=== PATIENT | male | born 1970 | race Two or more races ===

== ENCOUNTER 2022-07-23 14:34 | Inpatient (IN) | payer MEDICAID ==
[~2022-07-23] VITALS: Ht 172.7 cm; Wt 80.0 kg
[2022-07-23] MEDS ORDERED: ACETAMINOPHEN 325 MG TAB PO ONE (15:15)
[2022-07-23] MEDS ORDERED: NALOXONE HCL 0.4 MG/ML VIAL IV ONE (15:15)
[2022-07-23] MEDS ORDERED: SODIUM CHLORIDE 0.9% 500 ML IV ONE ×2 (15:30→16:15)
[2022-07-23 16:02] LABS: Basophils # (auto) 0 10 ^3/uL (0-0.2); Eosinophils # (auto) 0 10 ^3/uL (0-0.8); Eosinophils % (auto) 0.1 % (0.0-7.0); Monocytes # (auto) 0.6 10 ^3/uL (0-1.3); Nucleated Red Blood Cells % 0.1 %
[2022-07-23 16:04] LABS: Basophils % (auto) 0.3 % (0.0-2.0); Hematocrit 20.2 % (41.0-53.0); Lymphocytes # (auto) 2.3 10 ^3/uL (0.4-5.4); Lymphocytes % (auto) 32.4 % (10.0-50.0); Mean Corpuscular Hemoglobin 25.8 pg (28.0-32.0); Mean Corpuscular Hgb Conc. 31.8 g/dL (32.0-36.0); Monocytes % (auto) 8.7 % (0.0-12.0); Neutrophils # (auto) 4.1 10 ^3/uL (1.6-8.6); Neutrophils % (auto) 58.5 % (37.0-80.0); Red Blood Cells 2.49 10^6/uL (4.5-5.90); Red Cell Distribution Width 19.3 % (11.8-14.3)
[2022-07-23 16:15] LABS: Alanine Aminotransferase 8 U/L (16-61); Albumin 1.4 g/dL (3.4-5.0); Anion Gap 6 (5-15); Aspartate Aminotransferase 11 U/L (15-37); BUN/Creatinine Ratio 13.5; Blood Alcohol < 3.0 mg/dL (0-5); Blood Urea Nitrogen 39 mg/dL (7-18); Calcium 8.1 mg/dL (8.5-10.1); Carbon Dioxide 25 mmol/L (21-32); Chloride 115 mmol/L (98-107); GFR African American 30 mL/min; GFR Non-African American 24 mL/min; Glucose 185 mg/dL (74-106); Potassium 5.1 mmol/L (3.5-5.1); Sodium 146 mmol/L (136-145)
[2022-07-23 16:17] LABS: Alkaline Phosphatase 59 U/L (45-117); Bilirubin, Total 0.3 mg/dL (0.2-1.0); Total Protein 5.6 g/dL (6.4-8.2)
[2022-07-23 16:30] LABS: Alcohol, Urine < 3.0 mg/dL (0-10); Amphetamine Screen, Urine NEGATIVE (NEGATIVE); Barbiturate Scree,Urine NEGATIVE (NEGATIVE); Benzodiazephine Screen, Urine NEGATIVE (NEGATIVE); Cannabinoid Screen, Urine NEGATIVE (NEGATIVE); Cocaine Screen, Urine NEGATIVE (NEGATIVE); Opiate Scree,Urine NEGATIVE (NEGATIVE); Phencyclidine Screen, Urine NEGATIVE (NEGATIVE)
[2022-07-23 16:31] LABS: Hemoglobin 6.4 g/dL (13.5-17.5)
[2022-07-23] MEDS ORDERED: ACETAMINOPHEN 650 MG RECT SUPP PR ONE (16:45)
[2022-07-23 16:52] LABS: Urine Blood 1+ /uL (Negative)
[2022-07-23 16:59] LABS: Urine Bacteria None Seen /hpf (None Seen)
[2022-07-23] MEDS ORDERED: levoFLOXacin 500MG 100 ML IV ONE (17:45)
[2022-07-23 18:08] LABS: Urine WBC Clumps None Seen /hpf (None Seen)
[2022-07-23 18:10] LABS: Urine Ca Carbonate Crystal None Seen /hpf (None Seen); Urine WBC 0-3 /hpf (0 - 3)
[2022-07-23 18:11] LABS: Urine Amorphous Sediment None Seen /hpf; Urine Fine Granular Cast None Seen /lpf; Urine Hyaline Cast None Seen /lpf (0 - 2)
[2022-07-23 18:12] LABS: Urine Amorphous Crystal None Seen /hpf (None Seen); Urine Budding Yeast Moderate /hpf (None Seen); Urine Mucus None Seen (None Seen); Urine Sperm None Seen /hpf (None Seen)
[2022-07-23 20:50] VITALS: BP 87/46
[2022-07-23 21:05] VITALS: BP 94/44
[2022-07-23 21:20] VITALS: BP 90/45
[2022-07-23 21:35] VITALS: BP 89/45
[2022-07-23 21:50] VITALS: BP 97/47
[2022-07-23] MEDS ORDERED: DEXTROSE (50%) 50ML SYRG IV PRN (22:15)
[2022-07-23] MEDS ORDERED: DOCUSATE SOD 100 MG CAP PO PRN (22:15)
[2022-07-23] MEDS ORDERED: ACETAMINOPHEN 325 MG TAB PO PRN (22:15)
[2022-07-23] MEDS ORDERED: ONDANSETRON HCL 4 MG/2 ML VIAL IV PRN (22:15)
[2022-07-23] MEDS ORDERED: HYDROcodone-ACET 5/325MG TAB PO PRN (22:15)
[2022-07-23] MEDS: ALBUMIN 25% 100 ML IV SCH (22:51)
[2022-07-23] MEDS ORDERED: NITROGLYCERIN 0.4 MG SL TAB SL PRN (23:45)
[2022-07-23] MEDS ORDERED: MORPHINE SULFATE INJ 2 MG/ml SYRG IV PRN (23:45)
[2022-07-24] VITALS (9 sets, daily range): BP systolic 99–154; BP diastolic 47–71
[2022-07-24 05:25] LABS: Basophils # (auto) 0 10 ^3/uL (0-0.2); Eosinophils # (auto) 0 10 ^3/uL (0-0.8); Eosinophils % (auto) 0.1 % (0.0-7.0); Neutrophils # (auto) 4.9 10 ^3/uL (1.6-8.6); Red Cell Distribution Width 18.4 % (11.8-14.3)
[2022-07-24 05:28] LABS: Basophils % (auto) 0.2 % (0.0-2.0); Hematocrit 22.6 % (41.0-53.0); Hemoglobin 7.3 g/dL (13.5-17.5); Lymphocytes # (auto) 2.3 10 ^3/uL (0.4-5.4); Lymphocytes % (auto) 28.7 % (10.0-50.0); Mean Corpuscular Hgb Conc. 32.5 g/dL (32.0-36.0); Mean Corpuscular Volume 83.3 fL (80.0-100.0); Monocytes # (auto) 0.8 10 ^3/uL (0-1.3); Monocytes % (auto) 9.5 % (0.0-12.0); Neutrophils % (auto) 61.5 % (37.0-80.0); Red Blood Cells 2.71 10^6/uL (4.5-5.90)
[2022-07-24 05:47] LABS: Albumin 1.6 g/dL (3.4-5.0); Calcium 7.6 mg/dL (8.5-10.1); Potassium 4.4 mmol/L (3.5-5.1)
[2022-07-24 05:52] LABS: BUN/Creatinine Ratio 16.4; Bilirubin, Total 0.5 mg/dL (0.2-1.0); Total Protein 4.8 g/dL (6.4-8.2)
[2022-07-24] MEDS: ACCU-CHEK COMFORT CURVE STRIP VI SCH ×4 (06:19→22:13)
[2022-07-24] MEDS: InsuLIN REG 1unit/0.01ml Soln (100units/ml) SC SCH ×4 (06:20→22:00)
[2022-07-24] MEDS: ALBUMIN 25% 100 ML IV SCH ×2 (06:30→16:16)
[2022-07-24] MEDS: SODIUM CHLOR 0.9% PF (SALINE LOCK) 10ML VIAL/SYR IV SCH ×3 (06:31→22:12)
[2022-07-25 05:00] VITALS: BP 125/62
[2022-07-25] MEDS: ACCU-CHEK COMFORT CURVE STRIP VI SCH ×4 (06:24→22:00)
[2022-07-25] MEDS: InsuLIN REG 1unit/0.01ml Soln (100units/ml) SC SCH ×4 (06:24→22:00)
[2022-07-25] MEDS: GABAPENTIN 300 MG CAP PO SCH ×3 (06:25→23:08)
[2022-07-25] MEDS: SODIUM CHLOR 0.9% PF (SALINE LOCK) 10ML VIAL/SYR IV SCH ×3 (06:25→22:00)
[2022-07-25] MEDS: PIPERACILLIN-TAZOB 3.375GM 100 ML IV SCH ×2 (06:25→14:53)
[2022-07-25 09:00] VITALS: BP 135/67
[2022-07-25] MEDS: ASPirin 81 mg TAB PO SCH (09:25)
[2022-07-25] MEDS: CARVEDILOL 12.5 MG TAB PO SCH ×2 (09:27→22:00)
[2022-07-25 13:00] VITALS: BP 121/59
[2022-07-25 17:00] VITALS: BP 145/64
[2022-07-25 20:00] VITALS: BP 97/45
[2022-07-25 22:00] VITALS: BP 97/45
[2022-07-25] MEDS: MEROPENEM 1GM IVPB 100 ML IV SCH (23:04)
[2022-07-25] MEDS: ATORVASTATIN 20 MG TAB PO SCH (23:08)
[2022-07-26 05:00] VITALS: BP 113/59
[2022-07-26 05:38] LABS: Basophils # (auto) 0 10 ^3/uL (0-0.2); Eosinophils # (auto) 0 10 ^3/uL (0-0.8); Hemoglobin 8.6 g/dL (13.5-17.5); Lymphocytes # (auto) 1.7 10 ^3/uL (0.4-5.4); Neutrophils % (auto) 52.6 % (37.0-80.0); Nucleated Red Blood Cells % 0.2 %; Red Blood Cells 3.21 10^6/uL (4.5-5.90)
[2022-07-26 05:44] LABS: Basophils % (auto) 0.5 % (0.0-2.0); Eosinophils % (auto) 0.6 % (0.0-7.0); Hematocrit 26.8 % (41.0-53.0); Lymphocytes % (auto) 38.5 % (10.0-50.0); Mean Corpuscular Hemoglobin 26.7 pg (28.0-32.0); Mean Corpuscular Hgb Conc. 31.9 g/dL (32.0-36.0); Mean Corpuscular Volume 83.6 fL (80.0-100.0); Monocytes # (auto) 0.3 10 ^3/uL (0-1.3); Monocytes % (auto) 7.8 % (0.0-12.0); Neutrophils # (auto) 2.4 10 ^3/uL (1.6-8.6); Red Cell Distribution Width 19.1 % (11.8-14.3); White Blood Cell 4.5 10^3/uL (4.4-10.8)
[2022-07-26] MEDS: SODIUM CHLOR 0.9% PF (SALINE LOCK) 10ML VIAL/SYR IV SCH ×3 (06:00→22:35)
[2022-07-26 06:07] LABS: BUN/Creatinine Ratio 15.3; Calcium 8.2 mg/dL (8.5-10.1); Potassium 4.7 mmol/L (3.5-5.1)
[2022-07-26] MEDS: GABAPENTIN 300 MG CAP PO SCH ×3 (06:42→22:43)
[2022-07-26] MEDS: ACCU-CHEK COMFORT CURVE STRIP VI SCH ×4 (06:42→22:36)
[2022-07-26] MEDS: InsuLIN REG 1unit/0.01ml Soln (100units/ml) SC SCH ×4 (06:42→22:38)
[2022-07-26 08:27] VITALS: BP 143/75
[2022-07-26] MEDS: ZINC SULFATE 220mg CAP or TAB PO SCH (09:31)
[2022-07-26] MEDS: CHOLECALCIFEROL (VITD3) 1,000UNIT=25mCg TAB PO SCH (09:31)
[2022-07-26] MEDS: ASPirin 81 mg TAB PO SCH (09:31)
[2022-07-26] MEDS: ASCORBIC ACID 500 MG TAB PO SCH (09:31)
[2022-07-26] MEDS: CARVEDILOL 12.5 MG TAB PO SCH ×2 (09:32→22:43)
[2022-07-26] MEDS: MEROPENEM 1GM IVPB 100 ML IV SCH ×2 (11:33→22:41)
[2022-07-26 12:52] VITALS: BP 136/71
[2022-07-26] MEDS: DexAMETHasone SOD PHOS 10MG/1ML VIAL INJ IV SCH (14:41)
[2022-07-26 16:56] VITALS: BP 141/70
[2022-07-26 22:00] VITALS: BP 144/67
[2022-07-26] MEDS: ATORVASTATIN 20 MG TAB PO SCH (22:43)
[2022-07-27 05:00] VITALS: BP 123/60
[2022-07-27 05:29] LABS: Basophils # (auto) 0 10 ^3/uL (0-0.2); Basophils % (auto) 0.3 % (0.0-2.0); Eosinophils # (auto) 0 10 ^3/uL (0-0.8); Eosinophils % (auto) 0.1 % (0.0-7.0); Hematocrit 33.3 % (41.0-53.0); Hemoglobin 10.7 g/dL (13.5-17.5); Lymphocytes # (auto) 0.9 10 ^3/uL (0.4-5.4); Mean Corpuscular Hemoglobin 27.2 pg (28.0-32.0); Mean Corpuscular Hgb Conc. 32.1 g/dL (32.0-36.0); Mean Corpuscular Volume 84.6 fL (80.0-100.0); Monocytes # (auto) 0.2 10 ^3/uL (0-1.3); Monocytes % (auto) 5.3 % (0.0-12.0); Neutrophils # (auto) 1.8 10 ^3/uL (1.6-8.6); Neutrophils % (auto) 63.3 % (37.0-80.0); Nucleated Red Blood Cells % 0.2 %; Red Blood Cells 3.93 10^6/uL (4.5-5.90); Red Cell Distribution Width 19.7 % (11.8-14.3); White Blood Cell 2.9 10^3/uL (4.4-10.8)
[2022-07-27] MEDS: ACCU-CHEK COMFORT CURVE STRIP VI SCH ×4 (06:52→21:46)
[2022-07-27] MEDS: SODIUM CHLOR 0.9% PF (SALINE LOCK) 10ML VIAL/SYR IV SCH ×3 (06:52→21:47)
[2022-07-27] MEDS: InsuLIN REG 1unit/0.01ml Soln (100units/ml) SC SCH ×4 (06:55→21:53)
[2022-07-27] MEDS: GABAPENTIN 300 MG CAP PO SCH ×3 (06:55→21:54)
[2022-07-27 07:49] LABS: BUN/Creatinine Ratio 17.3; Calcium 8.2 mg/dL (8.5-10.1); Potassium 5.2 mmol/L (3.5-5.1)
[2022-07-27 08:00] VITALS: BP 139/70
[2022-07-27 08:30] VITALS: BP 139/70
[2022-07-27] MEDS: DexAMETHasone SOD PHOS 10MG/1ML VIAL INJ IV SCH (09:20)
[2022-07-27] MEDS: MEROPENEM 1GM IVPB 100 ML IV SCH ×2 (09:20→21:56)
[2022-07-27] MEDS: CHOLECALCIFEROL (VITD3) 1,000UNIT=25mCg TAB PO SCH (09:21)
[2022-07-27] MEDS: ZINC SULFATE 220mg CAP or TAB PO SCH (09:21)
[2022-07-27] MEDS: CARVEDILOL 12.5 MG TAB PO SCH ×2 (09:21→21:55)
[2022-07-27] MEDS: ASCORBIC ACID 500 MG TAB PO SCH (09:21)
[2022-07-27] MEDS: ASPirin 81 mg TAB PO SCH (09:21)
[2022-07-27 12:00] VITALS: BP 137/68
[2022-07-27 16:00] VITALS: BP 136/64
[2022-07-27] MEDS ORDERED: SODIUM ZIRCONIUM CYCL 10 GM PAK PO ONE (18:00)
[2022-07-27] MEDS: SOD CHL 0.45% 1,000 ML IV SCH (19:23)
[2022-07-27] MEDS ORDERED: REMDESIVIR PER PHARMACY 0 ML IV SCH (19:45)
[2022-07-27] MEDS: ATORVASTATIN 20 MG TAB PO SCH (21:55)
[2022-07-27 22:00] VITALS: BP 111/57
[2022-07-27] MEDS ORDERED: REMDESIVIR 200 MG in NS 210ml LOADING DOSE ADULT IV ONE (22:30)
[2022-07-28 05:00] VITALS: BP 136/63
[2022-07-28 05:28] LABS: Basophils # (auto) 0 10 ^3/uL (0-0.2); Eosinophils # (auto) 0 10 ^3/uL (0-0.8); Eosinophils % (auto) 0.1 % (0.0-7.0); Hemoglobin 9.3 g/dL (13.5-17.5); Neutrophils # (auto) 5.6 10 ^3/uL (1.6-8.6)
[2022-07-28 05:30] LABS: Basophils % (auto) 0.2 % (0.0-2.0); Hematocrit 29.7 % (41.0-53.0); Lymphocytes # (auto) 0.7 10 ^3/uL (0.4-5.4); Lymphocytes % (auto) 10.9 % (10.0-50.0); Mean Corpuscular Hemoglobin 26.7 pg (28.0-32.0); Mean Corpuscular Hgb Conc. 31.4 g/dL (32.0-36.0); Mean Corpuscular Volume 84.9 fL (80.0-100.0); Monocytes # (auto) 0.4 10 ^3/uL (0-1.3); Monocytes % (auto) 5.4 % (0.0-12.0); Neutrophils % (auto) 83.4 % (37.0-80.0); Nucleated Red Blood Cells % 0.1 %; Red Cell Distribution Width 18.9 % (11.8-14.3); White Blood Cell 6.8 10^3/uL (4.4-10.8)
[2022-07-28 05:38] LABS: Potassium 5.2 mmol/L (3.5-5.1)
[2022-07-28 05:44] LABS: BUN/Creatinine Ratio 17.4; Calcium 8.2 mg/dL (8.5-10.1)
[2022-07-28] MEDS: SODIUM CHLOR 0.9% PF (SALINE LOCK) 10ML VIAL/SYR IV SCH ×3 (06:04→21:28)
[2022-07-28] MEDS: ACCU-CHEK COMFORT CURVE STRIP VI SCH ×4 (06:05→21:28)
[2022-07-28] MEDS: InsuLIN REG 1unit/0.01ml Soln (100units/ml) SC SCH ×4 (06:06→21:26)
[2022-07-28] MEDS: GABAPENTIN 300 MG CAP PO SCH ×3 (06:10→21:27)
[2022-07-28] MEDS: SOD CHL 0.45% 1,000 ML IV SCH ×3 (08:29→23:30)
[2022-07-28] MEDS: AZITHROMYCIN 500MG/ 250ML 250 ML IV SCH (08:29)
[2022-07-28 08:30] VITALS: BP 108/56
[2022-07-28 09:06] VITALS: BP 108/56
[2022-07-28] MEDS: ASCORBIC ACID 500 MG TAB PO SCH (10:33)
[2022-07-28] MEDS: ZINC SULFATE 220mg CAP or TAB PO SCH (10:33)
[2022-07-28] MEDS: DexAMETHasone SOD PHOS 10MG/1ML VIAL INJ IV SCH (10:33)
[2022-07-28] MEDS: ASPirin 81 mg TAB PO SCH (10:34)
[2022-07-28] MEDS: CARVEDILOL 12.5 MG TAB PO SCH ×2 (10:34→21:27)
[2022-07-28] MEDS: MEROPENEM 1GM IVPB 100 ML IV SCH ×2 (10:35→21:28)
[2022-07-28] MEDS: CHOLECALCIFEROL (VITD3) 1,000UNIT=25mCg TAB PO SCH (11:58)
[2022-07-28 13:05] VITALS: BP 140/67
[2022-07-28] MEDS: REMDESIVIR 100mg 100 MG in SODIUM CHL 0.9% 230 ML IV SCH (14:53)
[2022-07-28] MEDS ORDERED: SODIUM ZIRCONIUM CYCL 10 GM PAK PO ONE (15:30)
[2022-07-28 16:53] VITALS: BP 162/70
[2022-07-28] MEDS: ATORVASTATIN 20 MG TAB PO SCH (21:27)
[2022-07-28 22:00] VITALS: BP 146/65
[2022-07-29 05:00] VITALS: BP 101/65
[2022-07-29] MEDS: SODIUM CHLOR 0.9% PF (SALINE LOCK) 10ML VIAL/SYR IV SCH ×3 (05:53→22:00)
[2022-07-29 06:30] LABS: Basophils # (auto) 0 10 ^3/uL (0-0.2); Eosinophils # (auto) 0 10 ^3/uL (0-0.8); Hemoglobin 8.9 g/dL (13.5-17.5); Lymphocytes # (auto) 0.9 10 ^3/uL (0.4-5.4); Monocytes # (auto) 0.2 10 ^3/uL (0-1.3); Nucleated Red Blood Cells % 0.1 %
[2022-07-29 06:32] LABS: Basophils % (auto) 0.2 % (0.0-2.0); Lymphocytes % (auto) 18.9 % (10.0-50.0); Mean Corpuscular Hemoglobin 26.9 pg (28.0-32.0); Mean Corpuscular Volume 84.3 fL (80.0-100.0); Monocytes % (auto) 4.1 % (0.0-12.0); Neutrophils # (auto) 3.6 10 ^3/uL (1.6-8.6); Neutrophils % (auto) 76.8 % (37.0-80.0); Red Blood Cells 3.32 10^6/uL (4.5-5.90); Red Cell Distribution Width 19.1 % (11.8-14.3); White Blood Cell 4.7 10^3/uL (4.4-10.8)
[2022-07-29] MEDS: SOD CHL 0.45% 1,000 ML IV SCH ×2 (06:38→16:04)
[2022-07-29] MEDS: InsuLIN REG 1unit/0.01ml Soln (100units/ml) SC SCH ×4 (06:40→22:32)
[2022-07-29] MEDS: GABAPENTIN 300 MG CAP PO SCH ×3 (06:42→22:38)
[2022-07-29] MEDS: ACCU-CHEK COMFORT CURVE STRIP VI SCH ×4 (06:42→22:00)
[2022-07-29 06:50] LABS: Calcium 8.2 mg/dL (8.5-10.1); Potassium 5.3 mmol/L (3.5-5.1)
[2022-07-29 06:53] LABS: BUN/Creatinine Ratio 20.6
[2022-07-29] MEDS: AZITHROMYCIN 500MG/ 250ML 250 ML IV SCH (07:54)
[2022-07-29 07:55] VITALS: BP 173/72
[2022-07-29 08:05] VITALS: BP 173/72
[2022-07-29] MEDS: CARVEDILOL 12.5 MG TAB PO SCH ×2 (08:09→22:38)
[2022-07-29] MEDS: ASCORBIC ACID 500 MG TAB PO SCH (10:22)
[2022-07-29] MEDS: DexAMETHasone SOD PHOS 10MG/1ML VIAL INJ IV SCH (10:22)
[2022-07-29] MEDS: CHOLECALCIFEROL (VITD3) 1,000UNIT=25mCg TAB PO SCH (10:22)
[2022-07-29] MEDS: ASPirin 81 mg TAB PO SCH (10:22)
[2022-07-29] MEDS: ZINC SULFATE 220mg CAP or TAB PO SCH (10:22)
[2022-07-29] MEDS: MEROPENEM 1GM IVPB 100 ML IV SCH ×2 (10:23→22:36)
[2022-07-29 13:00] VITALS: BP 149/70
[2022-07-29] MEDS ORDERED: SODIUM ZIRCONIUM CYCL 10 GM PAK PO ONE (14:15)
[2022-07-29] MEDS: REMDESIVIR 100mg 100 MG in SODIUM CHL 0.9% 230 ML IV SCH (16:02)
[2022-07-29 17:00] VITALS: BP 136/71
[2022-07-29 22:00] VITALS: BP 141/77
[2022-07-29] MEDS: ATORVASTATIN 20 MG TAB PO SCH (22:38)
[2022-07-30] MEDS: SOD CHL 0.45% 1,000 ML IV SCH ×2 (02:31→11:27)
[2022-07-30 05:00] VITALS: BP 158/72
[2022-07-30] MEDS: SODIUM CHLOR 0.9% PF (SALINE LOCK) 10ML VIAL/SYR IV SCH ×3 (06:00→22:27)
[2022-07-30 06:07] LABS: Basophils # (auto) 0 10 ^3/uL (0-0.2); Basophils % (auto) 0.1 % (0.0-2.0); Eosinophils # (auto) 0 10 ^3/uL (0-0.8); Hemoglobin 8.8 g/dL (13.5-17.5); Lymphocytes # (auto) 1.5 10 ^3/uL (0.4-5.4); Monocytes # (auto) 0.4 10 ^3/uL (0-1.3); Red Cell Distribution Width 18.8 % (11.8-14.3); White Blood Cell 5.9 10^3/uL (4.4-10.8)
[2022-07-30 06:09] LABS: Eosinophils % (auto) 0.1 % (0.0-7.0); Hematocrit 27.5 % (41.0-53.0); Lymphocytes % (auto) 25.1 % (10.0-50.0); Mean Corpuscular Hemoglobin 26.8 pg (28.0-32.0); Mean Corpuscular Hgb Conc. 31.9 g/dL (32.0-36.0); Mean Corpuscular Volume 84.1 fL (80.0-100.0); Monocytes % (auto) 6.1 % (0.0-12.0); Neutrophils % (auto) 68.6 % (37.0-80.0); Nucleated Red Blood Cells % 0.2 %; Red Blood Cells 3.28 10^6/uL (4.5-5.90)
[2022-07-30 06:24] LABS: Albumin 1.5 g/dL (3.4-5.0); Calcium 7.7 mg/dL (8.5-10.1); Potassium 4.8 mmol/L (3.5-5.1)
[2022-07-30 06:26] LABS: BUN/Creatinine Ratio 20.6
[2022-07-30] MEDS: InsuLIN REG 1unit/0.01ml Soln (100units/ml) SC SCH ×4 (06:27→22:48)
[2022-07-30 06:28] LABS: Bilirubin, Total 0.3 mg/dL (0.2-1.0); Total Protein 5.4 g/dL (6.4-8.2)
[2022-07-30] MEDS: ACCU-CHEK COMFORT CURVE STRIP VI SCH ×4 (06:37→22:28)
[2022-07-30] MEDS: GABAPENTIN 300 MG CAP PO SCH ×3 (06:37→22:28)
[2022-07-30 09:00] VITALS: BP_SYST 119; BP_SYST 153; BP_DIAS 58; BP_DIAS 70
[2022-07-30] MEDS: ASPirin 81 mg TAB PO SCH (11:10)
[2022-07-30] MEDS: CHOLECALCIFEROL (VITD3) 1,000UNIT=25mCg TAB PO SCH (11:10)
[2022-07-30] MEDS: AZITHROMYCIN 500MG/ 250ML 250 ML IV SCH (11:10)
[2022-07-30] MEDS: ZINC SULFATE 220mg CAP or TAB PO SCH (11:11)
[2022-07-30] MEDS: ASCORBIC ACID 500 MG TAB PO SCH (11:11)
[2022-07-30] MEDS: CARVEDILOL 12.5 MG TAB PO SCH ×2 (11:14→22:47)
[2022-07-30] MEDS: DexAMETHasone SOD PHOS 10MG/1ML VIAL INJ IV SCH (11:14)
[2022-07-30 13:00] VITALS: BP 143/76
[2022-07-30] MEDS: MEROPENEM 1GM IVPB 100 ML IV SCH ×2 (15:17→22:27)
[2022-07-30 17:00] VITALS: BP 143/65
[2022-07-30] MEDS ORDERED: SOD CHL 0.45% 1,000 ML IV SCH (18:00)
[2022-07-30] MEDS: REMDESIVIR 100mg 100 MG in SODIUM CHL 0.9% 230 ML IV SCH (18:50)
[2022-07-30 22:00] VITALS: BP 146/79
[2022-07-30] MEDS: ATORVASTATIN 20 MG TAB PO SCH (22:28)
[2022-07-31 05:14] LABS: Basophils # (auto) 0 10 ^3/uL (0-0.2); Basophils % (auto) 0.1 % (0.0-2.0); Eosinophils # (auto) 0 10 ^3/uL (0-0.8); Monocytes # (auto) 0.3 10 ^3/uL (0-1.3); Neutrophils # (auto) 5.1 10 ^3/uL (1.6-8.6); Nucleated Red Blood Cells % 0.1 %
[2022-07-31 05:17] LABS: Eosinophils % (auto) 0.1 % (0.0-7.0); Hematocrit 28.9 % (41.0-53.0); Hemoglobin 9.3 g/dL (13.5-17.5); Lymphocytes # (auto) 1.3 10 ^3/uL (0.4-5.4); Lymphocytes % (auto) 19.7 % (10.0-50.0); Mean Corpuscular Hemoglobin 26.9 pg (28.0-32.0); Mean Corpuscular Hgb Conc. 32.2 g/dL (32.0-36.0); Mean Corpuscular Volume 83.4 fL (80.0-100.0); Neutrophils % (auto) 75.1 % (37.0-80.0); Red Blood Cells 3.47 10^6/uL (4.5-5.90); Red Cell Distribution Width 19.2 % (11.8-14.3); White Blood Cell 6.8 10^3/uL (4.4-10.8)
[2022-07-31] MEDS: GABAPENTIN 300 MG CAP PO SCH ×2 (06:26→14:37)
[2022-07-31] MEDS: SODIUM CHLOR 0.9% PF (SALINE LOCK) 10ML VIAL/SYR IV SCH ×2 (06:26→14:37)
[2022-07-31] MEDS: ACCU-CHEK COMFORT CURVE STRIP VI SCH ×3 (06:27→18:04)
[2022-07-31] MEDS: InsuLIN REG 1unit/0.01ml Soln (100units/ml) SC SCH ×3 (06:32→18:17)
[2022-07-31 07:03] LABS: BUN/Creatinine Ratio 25.9; Calcium 7.9 mg/dL (8.5-10.1); Potassium 4.7 mmol/L (3.5-5.1)
[2022-07-31 08:00] VITALS: BP 164/78
[2022-07-31 09:53] VITALS: BP 164/78
[2022-07-31 12:03] VITALS: BP 131/68
[2022-07-31] MEDS: ASPirin 81 mg TAB PO SCH (14:35)
[2022-07-31] MEDS: MEROPENEM 1GM IVPB 100 ML IV SCH (14:35)
[2022-07-31] MEDS: DexAMETHasone SOD PHOS 10MG/1ML VIAL INJ IV SCH (14:35)
[2022-07-31] MEDS: ZINC SULFATE 220mg CAP or TAB PO SCH (14:36)
[2022-07-31] MEDS: ASCORBIC ACID 500 MG TAB PO SCH (14:36)
[2022-07-31] MEDS: CHOLECALCIFEROL (VITD3) 1,000UNIT=25mCg TAB PO SCH (14:37)
[2022-07-31] MEDS: CARVEDILOL 12.5 MG TAB PO SCH (15:28)
[2022-07-31 17:00] VITALS: BP 156/73
[2022-07-31] MEDS: REMDESIVIR 100mg 100 MG in SODIUM CHL 0.9% 230 ML IV SCH (18:04)
== END 2022-07-31 21:26 | disposition home health service (06) | DRG 137 ==
LOC: ER 14:34 → EDBD 14:34 → TELE 23:34 → TELE-CENTR 07-24 03:40 → CENTRAL 07-31 06:27
PROVIDERS: ADMIT Nurse Practitioner Family; ATTEND Nurse Practitioner
PROC: 30233N1 Transfusion of Nonautologous Red Blood Cells into Peripheral Vein, Percutaneous Approach (ICD-10-PCS; 2022-07-23)
PROC: XW033E5 Introduction of Remdesivir Anti-infective into Peripheral Vein, Percutaneous Approach, New Technology Group 5 (ICD-10-PCS; principal; 2022-07-28)
DX: U07.1 COVID-19 (principal); J96.21 Acute and chronic respiratory failure with hypoxia; J12.82 Pneumonia due to coronavirus disease 2019; L89.153 Pressure ulcer of sacral region, stage 3; E46 Unspecified protein-calorie malnutrition; N17.9 Acute kidney failure, unspecified; R53.2 Functional quadriplegia; E87.0 Hyperosmolality and hypernatremia; M46.28 Osteomyelitis of vertebra, sacral and sacrococcygeal region; E11.22 Type 2 diabetes mellitus with diabetic chronic kidney disease; D64.9 Anemia, unspecified; E11.69 Type 2 diabetes mellitus with other specified complication; E11.65 Type 2 diabetes mellitus with hyperglycemia; E86.0 Dehydration; F03.90 Unspecified dementia, unspecified severity, without behavioral disturbance, psychotic disturbance, mood disturbance, and anxiety; I12.9 Hypertensive chronic kidney disease with stage 1 through stage 4 chronic kidney disease, or unspecified chronic kidney disease; N39.0 Urinary tract infection, site not specified; E87.5 Hyperkalemia; I95.9 Hypotension, unspecified; S91.302A Unspecified open wound, left foot, initial encounter; X58.XXXA Exposure to other specified factors, initial encounter; J98.11 Atelectasis; N18.32 Chronic kidney disease, stage 3b; Z68.1 Body mass index [BMI] 19.9 or less, adult; Z86.73 Personal history of transient ischemic attack (TIA), and cerebral infarction without residual deficits; Z79.4 Long term (current) use of insulin; Z89.511 Acquired absence of right leg below knee; Z89.611 Acquired absence of right leg above knee; Y93.89 Activity, other specified; Y92.89 Other specified places as the place of occurrence of the external cause; Y99.8 Other external cause status
CPT/HCPCS: 36415; 36430; 36600; 70450; 71045; 73700; 80048; 80053; 80307; 80320; 81003; 81015; 82728; 82805; 82962; 83036; 83615; 84484; 85025; 85379; 86141; 86850; 86900; 86901; 86920; 87040; 87081; 87426; 93005; 93971; 96361; 96365; 99291; G0378; J1100; J1815; J1956; J2185; J2543; P9047

== ENCOUNTER 2023-09-06 16:35 | Emergency (ER) | payer MEDICAID ==
[~2023-09-06] VITALS: Ht 157.5 cm; Wt 86.3 kg
[2023-09-06 18:10] VITALS: PULSE 93; RESP 20; O2SAT 95
[2023-09-06] MEDS ORDERED: ONDANSETRON HCL 4 MG/2 ML VIAL IV ONE ×2 (18:30→22:30)
[2023-09-06 18:54] LABS: Basophils # (auto) 0.1 10 ^3/uL (0-0.2); Eosinophils # (auto) 0.1 10 ^3/uL (0-0.8); Lymphocytes # (auto) 2.8 10 ^3/uL (0.4-5.4); Mean Corpuscular Volume 84.2 fL (80.0-100.0); Monocytes # (auto) 0.5 10 ^3/uL (0-1.3); Monocytes % (auto) 4.4 % (0.0-12.0)
[2023-09-06 18:56] LABS: Basophils % (auto) 0.7 % (0.0-2.0); Eosinophils % (auto) 1.1 % (0.0-7.0); Hematocrit 39.7 % (41.0-53.0); Hemoglobin 12.6 g/dL (13.5-17.5); Lymphocytes % (auto) 24.4 % (10.0-50.0); Mean Corpuscular Hemoglobin 26.8 pg (28.0-32.0); Mean Corpuscular Hgb Conc. 31.9 g/dL (32.0-36.0); Neutrophils # (auto) 8.1 10 ^3/uL (1.6-8.6); Neutrophils % (auto) 69.4 % (37.0-80.0); Nucleated Red Blood Cells % 0.1 %; Red Blood Cells 4.71 10^6/uL (4.5-5.90); White Blood Cell 11.6 10^3/uL (4.4-10.8)
[2023-09-06 19:04] LABS: Chloride 107 mmol/L (98-107); Potassium 4.3 mmol/L (3.5-5.1); Sodium 141 mmol/L (136-145)
[2023-09-06 19:05] LABS: Anion Gap 5 (5-15); Carbon Dioxide 29 mmol/L (20-30)
[2023-09-06 19:06] LABS: Calcium 8.4 mg/dL (8.7-10.4)
[2023-09-06 19:10] LABS: Glucose 117 mg/dL (74-106)
[2023-09-06 19:11] LABS: BUN/Creatinine Ratio 11.6 (10.0-20.0); Blood Urea Nitrogen 28 mg/dL (9-23)
[2023-09-06 19:40] VITALS: BP 140/79; PULSE 94; RESP 21; TEMP 98.3; O2SAT 95
[2023-09-06] MEDS ORDERED: ZOFR4T PO (21:18)
[2023-09-06] MEDS ORDERED: LOP2C PO (21:18)
[2023-09-06] MEDS ORDERED: AZIT-81 PO (21:18)
[2023-09-06 21:24] LABS: Urine Bacteria FEW /hpf (None Seen); Urine Blood 2+ /uL (Negative); Urine Clarity HAZY (Clear); Urine Color Yellow (Yellow); Urine Protein, UAD 2+ (Negative); Urine Specific Gravity 1.013 (1.001-1.035); Urine Urobilinogen Normal (Negative); Urine WBC 147 /hpf (0 - 3); Urine WBC Clumps PRESENT /hpf (None Seen)
== END 2023-09-06 22:52 | disposition home or self-care (01) ==
LOC: ER 16:35 → EDBD 16:35 → ER 22:52
DX: J98.4 Other disorders of lung (principal); I12.9 Hypertensive chronic kidney disease with stage 1 through stage 4 chronic kidney disease, or unspecified chronic kidney disease; N18.9 Chronic kidney disease, unspecified; E11.22 Type 2 diabetes mellitus with diabetic chronic kidney disease; Z86.73 Personal history of transient ischemic attack (TIA), and cerebral infarction without residual deficits
CPT/HCPCS: 36415; 71045; 74176; 80048; 81001; 82962; 83880; 84484; 85025; 85379; 96374; 96376; 99285; J2405

== ENCOUNTER 2023-09-18 14:08 | Emergency (ER) | payer MEDICAID ==
[~2023-09-18] VITALS: Ht 154.9 cm; Wt 77.3 kg
[~2023-09-18 14:08] MED LIST: AZIT-81 PO; LOP2C PO; ZOFR4T PO
[2023-09-18] MEDS ORDERED: ONDANSETRON ODT 4 MG TAB PO ONE (15:15)
[2023-09-18 15:38] LABS: Basophils # (auto) 0.1 10 ^3/uL (0-0.2); Eosinophils # (auto) 0.1 10 ^3/uL (0-0.8); Eosinophils % (auto) 0.6 % (0.0-7.0); Hemoglobin 13.3 g/dL (13.5-17.5); Lymphocytes # (auto) 2.3 10 ^3/uL (0.4-5.4); Lymphocytes % (auto) 20.1 % (10.0-50.0); Mean Corpuscular Hemoglobin 27.3 pg (28.0-32.0); Mean Corpuscular Hgb Conc. 31.7 g/dL (32.0-36.0); Mean Corpuscular Volume 86.1 fL (80.0-100.0); Monocytes # (auto) 0.4 10 ^3/uL (0-1.3); Neutrophils # (auto) 8.4 10 ^3/uL (1.6-8.6); Neutrophils % (auto) 74.3 % (37.0-80.0); Red Blood Cells 4.88 10^6/uL (4.5-5.90); Red Cell Distribution Width 15.8 % (11.8-14.3); White Blood Cell 11.4 10^3/uL (4.4-10.8)
[2023-09-18 15:53] LABS: Alanine Aminotransferase 11 U/L (7-40); Albumin 3.9 g/dL (3.2-4.8); Alkaline Phosphatase 116 U/L (46-116); Anion Gap 5 (5-15); Aspartate Aminotransferase 11 U/L (13-40); BUN/Creatinine Ratio 14.3 (10.0-20.0); Bilirubin, Total 0.4 mg/dL (0.2-1.0); Blood Urea Nitrogen 40 mg/dL (9-23); Calcium 9.1 mg/dL (8.7-10.4); Carbon Dioxide 29 mmol/L (20-30); Chloride 110 mmol/L (98-107); Glucose 134 mg/dL (74-106); Lipase 30 U/L (12-53); Potassium 5.3 mmol/L (3.5-5.1); Sodium 144 mmol/L (136-145); Total Protein 6.7 g/dL (5.7-8.2)
[2023-09-18 16:29] VITALS: BP 142/78; PULSE 104; RESP 18; TEMP 98.9; O2SAT 99
[2023-09-18 16:43] LABS: COVID19 ANTIGEN SOFIA FIA NEGATIVE (NEGATIVE); Rapid Influenza A Negative (Negative); Rapid Influenza B Negative (Negative)
[2023-09-18 17:38] LABS: Urine Bacteria NONE SEEN /hpf (None Seen); Urine Blood 2+ /uL (Negative); Urine Clarity CLOUDY (Clear); Urine Color Yellow (Yellow); Urine Protein, UAD 3+ (Negative); Urine Urobilinogen Normal (Negative); Urine WBC 5187 /hpf (0 - 3); Urine WBC Clumps PRESENT /hpf (None Seen); Urine pH 6.5 (5.0-8.0)
[2023-09-18 17:41] LABS: Urine Specific Gravity 1.015 (1.001-1.035)
[2023-09-18] MEDS ORDERED: levoFLOXacin 250 MG TAB PO ONE (18:00)
[2023-09-18] MEDS ORDERED: ZOFR4T PO (19:31)
[2023-09-18] MEDS ORDERED: LEVO750T8 PO (19:31)
== END 2023-09-18 20:04 | disposition home or self-care (01) ==
LOC: ER 14:08
DX: N39.0 Urinary tract infection, site not specified (principal); I12.0 Hypertensive chronic kidney disease with stage 5 chronic kidney disease or end stage renal disease; E11.22 Type 2 diabetes mellitus with diabetic chronic kidney disease; N18.6 End stage renal disease; Z86.73 Personal history of transient ischemic attack (TIA), and cerebral infarction without residual deficits; Z79.899 Other long term (current) drug therapy; Z20.822 Contact with and (suspected) exposure to COVID-19
CPT/HCPCS: 36415; 80053; 81001; 83605; 83690; 83880; 84484; 85025; 87426; 87804; 93005; 99284; Q0162